=== PATIENT | female | born 1955 | race Caucasian/White ===

== ENCOUNTER 2018-06-27 19:14 | Emergency (ER) | payer OTHER ==
[~2018-06-27] VITALS: Wt 98.2 kg
[2018-06-27] MEDS ORDERED: NPH10OT LEFT EAR (23:36)
--- NOTE | 2018-06-27 23:47 | ERD ---
ER Documentation Chief Complaint Chief Complaint FOREIGN BODY HPI 63-year-old female complaining of foreign body to left ear. Patient states is been there for the last 22 hours she can hear moving around. She was sleeping when this occurred. She denies any bleeding or purulence from her ear. Denies any pain. Has not taken any medication or used anything to help remove the foreign body. Denies medical problems. Allergic to tetracycline and gentamicin. Surgical history denies. Social history denies ROS All systems reviewed and are negative except as per history of present illness. Medications Home Meds Active Scripts Neomycin/Polymyxin/Hydrocort* (Cortisporin* Otic) 10 Ml Susp, 4 DROP LEFT EAR QID for 7 Days, EA Prov:ROS BEST PA-C 06/27/18 Allergies Allergies: Coded Allergies: gentamicin (Verified Allergy, Severe, severely ill, 06/27/18) tetracycline (Verified Allergy, Severe, anaphylactic shock, 06/27/18) PMhx/Soc Medical and Surgical Hx: pt denies Medical Hx, pt denies Surgical Hx Hx Alcohol Use: Yes (Rarely) Hx Substance Use: No Hx Tobacco Use: No Smoking Status: Never smoker FmHx Family History: No diabetes, No coronary disease, No other Physical Exam Vitals Vital Signs Date Temp Pulse Resp B/P (MAP) Pulse Ox O2 O2 Flow FiO2 Time Delivery Rate 06/27/18 97.8 90 18 182/88 98 19:26 (119) Physical Exam GENERAL: The patient is well-appearing, well-nourished, in no acute distress HEENT: Atraumatic. Conjunctivae are pink. Pupils equal, round, and reactive to light. There is no scleral icterus. Cerumen impaction noted of the left external ear canal with no obvious foreign body seen. Oropharynx clear. No nystagmus or photophobia. CHEST: Clear to auscultation bilaterally. There are no rales, wheezes or rhonchi. HEART: Regular rate and rhythm. No murmurs, clicks, rubs or gallops. No S3 or S4. Procedures/MDM ER course: 63-year-old female presenting with foreign body to left ear. Cerumen ear lavage was performed in ED and cerumen and body removed. Patient symptoms improved and she no longer felt foreign body moving in her left ear. MDM: 63-year-old female presenting with foreign body to left ear. Foreign body was removed via ear lavage in the ER and I will suspicion for iatrogenic injury. Patient does have some friability noted to the external ear canal tissue so we will treat with antibiotic otic drops. Patient is told symptoms change or worsen to return to the ER immediately. All questions answered at discharge Departure Diagnosis: Primary Impression: Foreign body in ear Condition: Stable Patient Instructions: Foreign Body, Ear Canal (Removed) Referrals: [facility] YOU HAVE RECEIVED A MEDICAL SCREENING EXAM AND THE RESULTS INDICATE THAT YOU DO NOT HAVE A CONDITION THAT REQUIRES URGENT TREATMENT IN THE EMERGENCY DEPARTMENT. FURTHER EVALUATION AND TREATMENT OF YOUR CONDITION CAN WAIT UNTIL YOU ARE SEEN IN YOUR DOCTORS OFFICE WITHIN THE NEXT 1-2 DAYS. IT IS YOUR RESPONSIBILITY TO MAKE AN APPOINTMENT FOR FOLOW-UP CARE. IF YOU HAVE A PRIMARY DOCTOR --you should call your primary doctor and schedule an appointment IF YOU DO NOT HAVE A PRIMARY DOCTOR YOU CAN CALL OUR PHYSICIAN REFERRAL HOTLINE AT IF YOU CAN NOT AFFORD TO SEE A PHYSICIAN YOU CAN CHOSE FROM THE FOLLOWING [facility] [address] [facility] [facility] [employer] [facility]. [facility] [address] [facility] [facility] [employer] [facility] [address] [facility] [facility] [address] [facility]. [facility] [address] [facility]. [facility]. [address] Additional Instructions: FOLLOW UP WITH YOUR PRIMARY CARE PHYSICIAN TOMORROW.Return to this facility if you are not improving as expected. ROS BEST PA-C Jun 27, 2018 23:47
[2018-06-27 23:58] VITALS: BP 186/77; PULSE 78; RESP 18
== END 2018-06-28 | disposition home or self-care (01) ==
LOC: FTE 19:14
DX: T16.2XXA Foreign body in left ear, initial encounter (principal); H61.22 Impacted cerumen, left ear; X58.XXXA Exposure to other specified factors, initial encounter; Y92.9 Unspecified place or not applicable